=== PATIENT | female | born 1965 | race Caucasian/White ===

== ENCOUNTER 2024-03-14 14:43 | Emergency (ER) | payer MEDICAID, SELFPAY ==
[2024-03-14 14:59] VITALS: BP 171/82; PULSE 89; RESP 18; TEMP 36.9; O2SAT 94
--- NOTE | 2024-03-14 15:14 | PD.EDRME ---
Rapid Medical Screening Exam E Arrival date/time: 03/14/24 14:43 59-year-old female with a history of type 2 diabetes, hypertension presents to the emergency room with a chief complaint of an elevated blood sugar reading. Patient states she was seen by her primary care provider this morning and labs were drawn. Patient states she went home and checked her blood sugar and it read critically high. I have greeted and performed a focused initial assessment of this patient. A comprehensive ED assessment and evaluation of the patient, analysis of all test results, and completion of the medical decision making process will be conducted by additional ED providers. Chief Complaint: Recheck/Abnormal Lab/Rx Vital signs: Vital Signs Temperature 98.5 F 03/14/24 14:59 Pulse Rate 89 03/14/24 14:59 Respiratory Rate 18 03/14/24 14:59 Blood Pressure 171/82 H 03/14/24 14:59 Pulse Oximetry (%) 94 L 03/14/24 14:59 Oxygen Delivery Method Room Air 03/14/24 14:59 Vital signs reviewed by provider: Yes
[2024-03-14 15:51] LABS: Basophils % (Auto) 0 % (0-2.5); Eosinophils # (Auto) 0.3 Thou/mm3 (0.0-0.5); Eosinophils % (Auto) 4 % (0-10); Hematocrit 33.5 % (36.0-46.0); Hemoglobin 10.7 g/dL (12.0-16.0); Immature Granulocytes % (Auto) 1 % (0-0); Immature Granulocytes Auto 0.05 Thou/mm3 (0.00-0.00); Lymphocytes # (Auto) 1.6 Thou/mm3 (1.0-4.8); Lymphocytes % (Auto) 23 % (10-50); Mean Corpuscular HGB Conc 31.9 g/dl (31.0-37.0); Mean Corpuscular Hemoglobin 25.8 pg (25.0-35.0); Mean Corpuscular Volume 81 fL (80-100); Monocytes # (Auto) 0.4 Thou/mm3 (0.0-0.8); Monocytes % (Auto) 6 % (0-12); Neutrophils # (Auto) 4.6 Thou/mm3 (1.8-7.7); Neutrophils % (Auto) 66 % (37-80); Nucleated Red Blood Cell % 0 /100 WBC (0); Platelet Count 272 Thou/mm3 (140-440); RDW Standard Deviation 43.4 fL (36.4-46.3); Red Blood Count 4.14 Miln/mm3 (4.00-5.20); White Blood Count 6.9 Thou/mm3 (3.6-11.0)
[2024-03-14 15:52] LABS: Beta Hydroxybutyrate 0.1 mmol/L (<0.6)
[2024-03-14 16:10] LABS: Collection Type, Urine Clean Catch
[2024-03-14 16:29] LABS: Alanine Aminotransferase 43 U/L (10-49); Albumin, Serum 4.5 gm/dL (3.4-4.8); Albumin/Globulin Ratio 1.8 (1.2-2.2); Alkaline Phosphatase 116 U/L (46-116); Anion Gap 8 (7-16); Aspartate Amino Transferase 31 U/L (0-34); BUN/Creatinine Ratio 12 Ratio (12-20); Bilirubin,Total 0.2 mg/dL (0.3-1.2); Blood Urea Nitrogen 23 mg/dL (9-23); Calcium 8.9 mg/dL (8.3-10.6); Calcium (Corrected) 8.9 mg/dL (8.5-10.1); Carbon Dioxide 25.4 mMol/L (20.0-31.0); Chloride 99 mMol/L (98-107); Creatinine (Component) 1.9 mg/dL (0.6-1.3); Globulin 2.5 gm/dL (2.3-3.5); Lipase 43 U/L (12-53); Osmolality,Calculated 291 (275-295); Potassium 4.3 mMol/L (3.4-5.1); Sodium 132 mMol/L (136-145); eGFR 30 See Note
[2024-03-14 16:29] LABS: Amphetamine/Methamp Scrn,U Negative (Negative); Barbiturate Screen,Urine Negative (Negative); Benzodiazepines Screen,Urine Negative (Negative); Benzoylecgonine Screen, Ur Negative (Negative); Fentanyl Screen,Urine Negative (Negative); Opiate Screen,Urine Negative (Negative); THC Screen,Urine Negative (Negative)
[2024-03-14 16:34] LABS: Glucose 508 mg/dL (74-106)
[2024-03-14 16:53] LABS: Bilirubin,Urine Negative (Negative); Blood,Urine Negative (Negative); Clarity,Urine Clear (Clear/Hazy); Color,Urine Colorless (Lt Yel-Yel); Glucose, Urine 4+ (Negative); Ketones,Urine Negative (Negative); Leukocyte Esterase,Urine Positive (Negative); Nitrite,Urine Negative (Negative); PH,Urine 6.5 (5.0-7.0); Protein,Urine Negative (Neg - Trace); RBC,Urine 1 /hpf (0-3); Squamous Epithelial Cell,Urine 1 /hpf (0-5); Urobilinogen,Urine Negative mg/dL (0.0-1.0); WBC,Urine 70 /hpf (0-5)
[2024-03-14 19:04] VITALS: BP 185/93; PULSE 92; RESP 20; TEMP 36.8; O2SAT 96
[2024-03-14 21:50] VITALS: BP 162/98; PULSE 93; RESP 18; TEMP 36.7; O2SAT 94
--- NOTE | 2024-03-14 21:55 | PD.EDRECHK ---
ED Recheck Abnl Lab Rx-RME/HPI General Chief Complaint: Recheck/Abnormal Lab/Rx Stated Complaint: Blood sugar 520 Time Seen by Provider: 03/14/24 21:31 Arrival date/time: 03/14/24 14:43 RME / HPI RME / HPI narrative: 03/14/24 14:43 59-year-old female with a history of type 2 diabetes, hypertension presents to the emergency room with a chief complaint of an elevated blood sugar reading. Patient states she was seen by her primary care provider this morning and labs were drawn. Patient states she went home and checked her blood sugar and it read critically high. I have greeted and performed a focused initial assessment of this patient. A comprehensive ED assessment and evaluation of the patient, analysis of all test results, and completion of the medical decision making process will be conducted by additional ED providers. Dr. Rush?s Main ED Evaluation: 59yo female with pmhx DM, HTN presents to the ED for a chief complaint of elevated blood sugar. Sister at bedside states she checked the patient's blood sugar today after she had routine labs done and was noted to be 520, so she brought her in for evaluation. Patient states she is compliant with her medication, but does not regularly check her blood sugar. She is not on insulin. She denies any N/V, headache, dizziness, lightheadedness or any other associated symptoms. No known allergies. Related Data Home Medications ?Medication ?Instructions ?Recorded ?Confirmed acetaminophen 650 mg 650 mg PO TID PRN Pain 06/27/22 06/27/22 tablet,extended release cyclobenzaprine 10 mg tablet 10 mg PO HS 06/27/22 06/27/22 escitalopram oxalate 10 mg tablet 10 mg PO QDAY 06/27/22 06/27/22 finerenone 10 mg tablet (Kerendia) 10 mg PO QDAY 06/27/22 06/27/22 levothyroxine 50 mcg tablet 50 mcg PO QDAY 06/27/22 06/27/22 lisinopril 20 mg tablet 20 mg PO QDAY 06/27/22 06/27/22 metformin 500 mg tablet 500 mg PO QDAY 06/27/22 06/27/22 omeprazole 40 mg capsule,delayed 40 mg PO QDAY 06/27/22 06/27/22 release Previous Rx's ?Medication ?Instructions ?Recorded albuterol sulfate 90 mcg/actuation 1 inh inhalation QID PRN shortness 12/05/20 aerosol inhaler (ProAir HFA) of breath or wheezing #6.7 grams guaifenesin 100 mg/5 mL oral 200 mg (10 mL) PO Q4H PRN cough 01/05/22 liquid (Adult Tussin Chest #500 mL Congestion) benzonatate 100 mg capsule 100 mg PO BID PRN cough #20 caps 04/06/22 IBU 800 mg tablet (ibuprofen) 800 mg PO Q6H PRN pain #30 tabs 06/19/22 baclofen 20 mg tablet 20 mg PO QDAY #20 tabs 06/19/22 cyclobenzaprine 10 mg tablet 10 mg PO TID PRN muscle spasm #20 07/29/22 tabs tramadol 37.5 mg-acetaminophen 325 1 tab PO TID PRN pain #20 tabs 07/29/22 mg tablet hydrocodone 5 mg-acetaminophen 325 1 tab PO BID PRN pain #10 tabs 07/18/23 mg tablet Allergies Allergy/AdvReac Type Severity Reaction Status Date / Time No Known Allergies Allergy Verified 07/18/23 09:41 Review of Systems Review of Systems Systems Reviewed: All systems reviewed, normal except as documented Past Medical History Past Medical History NEUROLOGIC: Negative Neurological Disorders CARDIAC: Positive Hypertension; Negative Cardiac Disorders or Congestive Heart Failure RESPIRATORY: Positive Chronic Obstructive Pulmonary Disease (COPD) and Asthma GASTROINTESTINAL: Positive Gastrointestinal Disorders (HEARTBURN) GENITOURINARY: Positive Renal Disease REPRODUCTIVE: Positive Previous Pregnancies () MUSCULOSKELETAL: Negative Musculoskeletal Disorders ENDOCRINE: Positive Diabetes Mellitus Type 2; Negative Diabetes Mellitus Type 1 HEMATOLOGIC: Negative Blood Disorders or Sickle Cell Disease PSYCHO/SOCIAL: Positive Depression OTHER HISTORY: Positive Hospitalization, Chicken Pox, Measles and Mumps; Negative Anesthesia Reactions or MRSA Family History FAMILY HISTORY: Positive Family Psychiatric Problems (NUMEROUS FAMILY MEMBERS), Family Cardiac Disorders (NUMEROUS FAMILY MEMBERS) and Family Cancer (MOTHER); Negative Family Respiratory Disorders, Family Gastrointestinal Problems or Family Surgery Surgical History SURGICAL: Positive Section (X1) Social History SMOKING STATUS: Current every day smoker ED Exam Narrative Physical exam: GENERAL APPEARANCE: alert and oriented x 4, well-developed, well-nourished, no acute distress VITALS: All vitals were reviewed and the pulse ox is 95% on room air, which is normal according to my interpretation. HEENT: normocephalic, atraumatic NECK: supple LUNGS: no respiratory distress, normal effort HEART: good peripheral perfusion ABDOMEN: non distended EXTREMITIES: atraumatic NEUROLOGIC: awake; alert and oriented x4; cranial nerves II-XII grossly intact PSYCHIATRIC: appropriate mood and affect SKIN: warm, dry, normal color; no rashes Course Quality Measures none Orders Category Date Time Status Beta Hydroxybutyrate Stat Lab 03/14/24 15:24 Completed CBC Stat Lab 03/14/24 15:24 Completed CMP [Comprehensive Metabolic Panel] Stat Lab 03/14/24 15:24 Completed Drug Screen,Urine Stat Lab 03/14/24 15:41 Completed Lipase Stat Lab 03/14/24 15:24 Completed UA [Urinalysis] Stat Lab 03/14/24 15:41 Completed Urine Culture Stat Lab 03/14/24 15:41 Received Vital Signs Vital signs: Vital Signs Temperature 98.5 F 03/14/24 14:59 Pulse Rate 89 03/14/24 14:59 Respiratory Rate 18 03/14/24 14:59 Blood Pressure 171/82 H 03/14/24 14:59 Pulse Oximetry (%) 94 L 03/14/24 14:59 Oxygen Delivery Method Room Air 03/14/24 14:59 Recheck / Abnormal Lab / Rx MDM Narrative MDM Narrative:: Scribe Attestation: 03/14/24 Brenda Shelton am scribing for and in the presence of Dr. Rush. Patient data External records reviewed:: [facility] previous records (Per chart review, patient was seen here on 09/05/23 for a migraine.) Clinical information provided by:: patient Social determinants that could affect healthcare access:: none Patient has the following chronic illnesses:: HTN, DMII How is presenting disease/condition affected by chronic disease/condition?: caused by Evaluation data The following diagnostics were reviewed and interpreted by me:: lab results Lab and/or radiology exams considered but not ordered:: none Interpretation Summary: CBC is normal, Glucose is elevated at 508, Anion Gap is normal, UA shows 4+ glucose, according to my interpretation. Medications / Prescriptions Medications or Prescriptions considered but not ordered:: none Medication administrations:: see above Consultations Consultation(s) initiated? (list below): No Diagnosis Recheck Differential Diagnosis: other (hyperglycemia without ketosis, DKA, hyperosmolar state) Most likely diagnosis given after review of the tests above:: hyperglycemia Admission Indicated Admission indicated?: not indicated Admission Request Was there a request for admission?: No Disposition Plan Disposition Plan: Discharge Discharge Attestation Discharge Attestation: The patient and all family members were given an opportunity to ask questions and understood the discharge instructions. Discharge instructions specifically effects, indications for sooner follow up or return to the emergency department, and the expected course of current diagnosis. Patient condition: Stable Discharge Plan Plan Patient Disposition: HOME (Self Care) Disposition Comment: Stable for discharge Patient condition on transfer: Stable Prescriptions/Referrals Prescriptions/Med Rec: No Action albuterol sulfate [ProAir HFA] 90 mcg/actuation HFA aerosol inhaler 1 inh inhalation QID PRN (Reason: shortness of breath or wheezing) Qty: 6.7 0RF guaifenesin [Adult Tussin Chest Congestion] 100 mg/5 mL liquid 200 mg PO Q4H PRN (Reason: cough) Qty: 500 0RF tramadol-acetaminophen 37.5-325 mg tablet 1 tab PO TID PRN (Reason: pain) Qty: 20 0RF cyclobenzaprine 10 mg tablet 10 mg PO TID PRN (Reason: muscle spasm) Qty: 20 0RF benzonatate 100 mg capsule 100 mg PO BID PRN (Reason: cough) Qty: 20 1RF metformin 500 mg Tablet 500 mg PO QDAY lisinopril 20 mg Tablet 20 mg PO QDAY acetaminophen 650 mg Tablet Extended Release 650 mg PO TID PRN (Reason: Pain) levothyroxine 50 mcg Tablet 50 mcg PO QDAY escitalopram oxalate 10 mg Tablet 10 mg PO QDAY Rx Instructions: take 1/2 tablet by mouth for 7 days, dthent take 1 tablet for 7 days every day cyclobenzaprine 10 mg Tablet 10 mg PO HS omeprazole 40 mg Capsule,Delayed Release(Dr/Ec) 40 mg PO QDAY Kerendia 10 mg Tablet 10 mg PO QDAY baclofen 20 mg tablet 20 mg PO QDAY Qty: 20 0RF ibuprofen [IBU] 800 mg tablet 800 mg PO Q6H PRN (Reason: pain) Qty: 30 0RF hydrocodone-acetaminophen 5-325 mg tablet 1 tab PO BID MDD 10 PRN (Reason: pain) Qty: 10 0RF Referrals: Melissa Ferraro NP [Primary Care Provider] - In 1 week Problem List Clinical Impression: Acute hyperglycemia Patient/Caregiver Discharge Instructions Discharge Activity: activity as tolerated Education Materials: High Blood Sugar (Hyperglycemia), How to Check Your Blood Sugar, Glucose Check Steps, ED Diabetes with High Blood Sugar Additional Instructions: Please return to the emergency department for any worsening or any further medical problems Otherwise you should follow-up with your primary care doctor at your earliest convenience as discussed. Today your blood sugar was 500. That is way too high. You are not having any complication of that high blood sugar such as DKA or hyperosmolar state. You are also not apparently having any acute infections. Is important that you follow-up with your primary care doctor so that you can discuss changing or adding to your medications. Print Language: Austrian Stand Alone Forms: Alejandrina Award Info., Patient Portal Info Letter
[2024-03-14] MEDS: INSULIN HUM REGULAR 1 UNIT/0.01 ML (PER UNIT) 5 UNIT SC (22:04)
[2024-03-14 22:10] VITALS: RESP 18
== END 2024-03-14 22:11 | disposition home or self-care (01) ==
PROVIDERS: Nurse Practitioner Family; Emergency Provider Emergency Medicine; PCP Nurse Practitioner Family
DX: E11.65 Type 2 diabetes mellitus with hyperglycemia (principal); I10 Essential (primary) hypertension
CPT/HCPCS: 36415; 80053; 80307; 81001; 82010; 83690; 85025; 87077; 87086; 87186; 96372; 99283; J1815

== ENCOUNTER → 2024-06-07 | Outpatient (CLI) | payer MEDICAID, SELFPAY ==
--- NOTE | 2024-06-07 13:00 | XR_ITS ---
Examination: Retroperitoneal ultrasound, complete Technique: Multiple high resolution grayscale images of the retroperitoneum obtained, including kidneys and bladder. Exam date and time:June 07, 2024 1315 hours INDICATIONS: Renal insufficiency on laboratory examination March 14, 2024. FINDINGS: Right kidney 10.5 cm cortex 1.6 cm Midpole 15 mm cyst Left kidney 11.8 cm cortex 1.8 cm Moderate renal parenchymal scar formation No bladder mass or bladder calculi Bladder prevoid volume 406 cc IMPRESSION: Moderate bilateral renal parenchymal scar formation, no hydronephrosis
== END | disposition home or self-care (01) ==
LOC: CDIM 12:52
PROVIDERS: PCP Nurse Practitioner Family; Referring Provider Internal Medicine; Visit Provider Internal Medicine
DX: N28.89 Other specified disorders of kidney and ureter (principal)
CPT/HCPCS: 76770

== ENCOUNTER 2024-09-22 19:59 | Emergency (ER) | payer MEDICAID, SELFPAY ==
--- NOTE | 2024-09-22 20:00 | EDNOTE_ITS ---
ED Fall Injury RME/HPI General Chief Complaint: Fall Stated Complaint: FALL Time Seen by Provider: 09/22/24 20:11 Arrival date/time: 09/22/24 19:59 RME / HPI RME / HPI Narrative: See MDM. Related Data Home Medications ?Medication ?Instructions ?Recorded ?Confirmed acetaminophen 650 mg 650 mg PO TID PRN Pain 06/2706/27/22 tablet,extended release cyclobenzaprine 10 mg tablet 10 mg PO HS 06/27/2206/07 escitalopram oxalate 10 mg tablet 10 mg PO QDAY 06/27/22 finerenone 10 mg tablet (Kerendia) 10 mg PO QDAY 06/2706/27/22 levothyroxine 50 mcg tablet 50 mcg PO QDAY 06/27/22 lisinopril 20 mg tablet 20 mg PO QDAY 06/27/2206/27 metformin 500 mg tablet 500 mg PO QDAY 06/27/2206/07 omeprazole 40 mg capsule,delayed 40 mg PO QDAY 3 06/27/22 release Previous Rx's ?Medication ?Instructions ?Recorded albuterol sulfate 90 mcg/actuation 1 inh inhalation QI D PRN shortness 12/05/20 aerosol inhaler (ProAir HFA) of breath or wheezing #6. 7 grams guaifenesin 100 mg/5 mL oral 200 mg (10 mL) PO Q4H PRN cough 01/05/22 liquid (Adult Tussin Chest #500 mL Congestion) benzonatate 100 mg capsule 100 mg PO BID PRN cough #20 caps 04/06/22 IBU 800 mg tablet (ibuprofen) 800 mg PO Q6H PRN pain # 30 tabs 06/19/22 baclofen 20 mg tablet 20 mg PO QDAY #20 tabs 06/19 cyclobenzaprine 10 mg tablet 10 mg PO TID PRN muscle s pasm #20 07/29/22 tabs tramadol 37.5 mg-acetaminophen 325 1 tab PO TID PRN pa in #20 tabs 07/29/22 mg tablet hydrocodone 5 mg-acetaminophen 325 1 tab PO BID PRN pa in #10 tabs 07/18/23 mg tablet Allergies Allergy/AdvReac Type Severity Reaction Status Date / Time No Known Allergies Allergy Verified 07/18/23 09:41 Review of Systems Review of Systems Systems Reviewed: All systems reviewed, normal except as documented Past Medical History Past Medical History NEUROLOGIC: Negative Neurological Disorders CARDIAC: Positive Hypertension; Negative Cardiac Disorders or Congestive Heart Failure RESPIRATORY: Positive Chronic Obstructive Pulmonary Disease (COPD) and Asthma GASTROINTESTINAL: Positive Gastrointestinal Disorders (HEARTBURN) GENITOURINARY: Positive Renal Disease REPRODUCTIVE: Positive Previous Pregnancies () MUSCULOSKELETAL: Negative Musculoskeletal Disorders ENDOCRINE: Positive Diabetes Mellitus Type 2; Negative Diabetes Mellitus Type 1 HEMATOLOGIC: Negative Blood Disorders or Sickle Cell Disease PSYCHO/SOCIAL: Positive Depression OTHER HISTORY: Positive Hospitalization, Chicken Pox, Measles and Mumps; Negative Anesthesia Reactions or MRSA Family History FAMILY HISTORY: Positive Family Psychiatric Problems (NUMEROUS FAMILY MEMBERS), Family Cardiac Disorders (NUMEROUS FAMILY MEMBERS) and Family Cancer (MOTHER); Negative Family Respiratory Disorders, Family Gastrointestinal Problems or Family Surgery Surgical History SURGICAL: Positive Section (X1) Social History SMOKING STATUS: Current every day smoker ED Exam Narrative Physical exam: As noted in MDM. Course Course Course Narrative: CXR ordered to r/o pneumothorax. Quality Measures none Orders Category Date Time Status Saline [Insert IV] NOW Care 09/22/24 20:04 Completed Straight [In and Out Catheter] X1 Care 09/22/24 20:03 Completed Transfer to another facility [Transfer/Discharge] Stat Discharge 09/22/24 22:[address] pelvis wo con Stat Exams 09/22/24 20:04 Completed XR chest 1V portable Stat Exams 09/22/24 20:05 Completed XR femur RT 2V Stat Exams 09/22/24 20:05 Completed XR hip RT 1V Stat Exams 09/22/24 20:31 Completed Alcohol, Blood Medical Stat Lab 09/22/24 20:15 Completed Bilirubin,Direct Stat Lab 09/22/24 20:15 Completed CBC Stat Lab 09/22/24 20:15 Completed CMP [Comprehensive Metabolic Panel] Stat Lab 09/22/24 20:15 Completed Magnesium Stat Lab 09/22/24 20:15 Completed PT [Prothrombin Time with INR] Stat Lab 09/22/24 20:15 Completed PTT [Partial Thromboplastin Time] Stat Lab 09/22/24 20:15 Completed HYDROmorphone INJ [Dilaudid Inj] Med 09/22/24 20:43 Discontinued 1 mg IVP X1 ONE HYDROmorphone INJ [Dilaudid Inj] Med 09/23/24 00:41 Discontinued 1 mg IVP X1 ONE Ketorolac Inj [Toradol Inj] Med 09/22/24 20:04 Discontinued 30 mg IVP X1 ONE Morphine Inj Med 09/22/24 20:04 Discontinued 4 mg IVP X1 ONE Ondansetron Inj [Zofran Inj] Med 09/22/24 20:04 Discontinued 4 mg IVP X1 ONE Sodium Chloride 0.9% 1000 ml [Ns] 1,000 ml Med 09/22/24 20:04 Discontinued IV 999 mls/hr Vital Signs Vital signs: Vital Signs Temperature 98 F 09/22/24 20:14 Pulse Rate 98 09/22/24 20:14 Respiratory Rate 18 09/22/24 20:14 Blood Pressure 152/112 H 09/22/24 20:14 Pulse Oximetry (%) 93 L 09/22/24 20:14 Oxygen Delivery Method Room Air 09/22/24 20:14 Fall MDM Narrative MDM Narrative:: This section includes all my notes and documentations, including HPI, PE, and ED course. Ming Eagle MD HPI: 59yo female BIBA from home with right hip pain after a fall just [employer]. Patient tripped over her grandson's toys and landed on her right hip. No head injury or loss of consciousness. No other injuries. No other complaints reported. ROS: All negative except as documented in HPI. Physical Exam: General: Alert and oriented. In obvious pain. Eyes: Conjunctivae and lids clear. ENT: No nasal congestion. Neck: Supple. Heart: RRR. Lungs: No respiratory distress. Good air movement. No rhonchi, wheezing, rales. Abdomen: Soft and nontender. Normal bowel sounds. No distension. No rebound or guarding. Back: No CVA tenderness. Skin: Warm and dry. Neuro: Alert and oriented X 3. Musculoskeletal: Remarkable for right hip tenderness. All other major bones and joints are nontender with no limited range of motion. I reviewed EMS notes. I reviewed all diagnostic test results. My interpretation of the right hip/femur x-rays is right hip fracture. My interpretation of the chest x-ray is NAD. My interpretation of the right femur x-ray is acute displaced subcapital hip fracture. My interpretation of the right hip x-ray is hip fracture. My review of the pelvic CT report is acute displaced right femoral neck fracture. Blood tests unremarkable. At this point, diagnoses include right hip fracture. Treatment here included IV fluid, Zofran, Toradol, morphine, and Dilaudid. She felt much better. I discussed the case with Dr. Clayton, orthopedic surgeon at [facility]. About the presentation and exam and diagnostics and treatments here. And need of further care in the hospital there. Will accept the patient. Ming Eagle MD Patient data External records reviewed:: [facility] previous records (Per chart review, patient was seen here on 03/14/24 for acute hyperglycemia.) and EMS form Clinical information provided by:: patient Social determinants that could affect healthcare access:: none Patient has the following chronic illnesses:: DM, HTN How is presenting disease/condition affected by chronic disease/condition?: uneffected by Evaluation data The following diagnostics were reviewed and interpreted by me:: lab results and radiology exam(s) Lab and/or radiology exams considered but not ordered:: none Interpretation Summary: I reviewed all diagnostic test results. My interpretation of the right hip/femur x-rays is right hip fracture. My interpretation of the chest x-ray is NAD. My interpretation of the right femur x-ray is acute displaced subcapital hip fracture. My interpretation of the right hip x-ray is hip fracture. My review of the pelvic CT report is acute displaced right femoral neck fracture. Blood tests unremarkable. Medications / Prescriptions Medications or Prescriptions considered but not ordered:: none Medication administrations:: Medication Administration History Discontinued Medications Hydromorphone HCl (Hydromorphone Inj 2 Mg/Ml Vial) 1 mg IVP X1 ONE Stop: 09/22/24 20:44 Last Admin: 09/22/24 20:51 Dose: 1 mg Documented By: JORDAN Hydromorphone HCl (Hydromorphone Inj 2 Mg/Ml Vial) 1 mg IVP X1 ONE Stop: 09/23/24 00:42 Last Admin: 09/23/24 00:45 Dose: 1 mg Documented By: JORDAN Sodium Chloride (Ns) 1,000 mls @ 999 mls/hr IV .Q1H1M ONE Stop: 09/22/24 21:04 Last Infusion: 09/22/24 22:05 Dose: Infused Documented By: Admin: 09/22/24 20:17 Dose: 999 mls/hr Documented By: EE Ketorolac Tromethamine (Ketorolac Inj 30 Mg/Ml Vial) 30 mg IVP X1 ONE Stop: 09/22/24 20:05 Last Admin: 09/22/24 20:17 Dose: 30 mg Documented By: EE Morphine Sulfate (Morphine Sulf Inj 10 Mg/Ml Vial) 4 mg IVP X1 ONE Stop: 09/22/24 20:05 Last Admin: 09/22/24 20:18 Dose: 4 mg Documented By: EE Ondansetron HCl (Ondansetron Inj 2 Mg/Ml Inj 2 Ml) 4 mg IVP X1 ONE; Protocol Stop: 09/22/24 20:05 Last Admin: 09/22/24 20:17 Dose: 4 mg Documented By: EE Morphine, Toradol, Dilaudid, Zofran, IV fluid Consultations Consultation(s) initiated? (list below): Yes Consultation #1 (Physician, Specialty, Details): I discussed the case with Dr. Clayton, orthopedic surgeon at [facility]. About the presentation and exam and diagnostics and treatments here. And need of further care in the hospital there. Will accept the patient. Diagnosis Fall Differential Diagnosis: syncope, dislocation of shoulder region, fracture of wrist, compression fracture, concussion with loss of consciousness and concussion without loss of consciousness Most likely diagnosis given after review of the tests above:: Right hip fracture Admission Indicated Admission indicated?: not indicated Explain why admission is indicated or not indicated:: No orthopedic service available at this facility currently. Admission Request Was there a request for admission?: No Disposition Plan Disposition Plan: Transfer ([facility] ) Discharge Plan Plan Patient Disposition: [facility] Facility Pt Being Transferred to: [facility] Service Needed for Transfer: Orthopedics Prescriptions/Referrals Prescriptions/Med Rec: No Action albuterol sulfate [ProAir HFA] 90 mcg/actuation HFA aerosol inhaler 1 inh inhalation QID PRN (Reason: shortness of breath or wheezing) Qty: 6.7 0RF guaifenesin [Adult Tussin Chest Congestion] 100 mg/5 mL liquid 200 mg PO Q4H PRN (Reason: cough) Qty: 500 0RF tramadol-acetaminophen 37.5-325 mg tablet 1 tab PO TID PRN (Reason: pain) Qty: 20 0RF cyclobenzaprine 10 mg tablet 10 mg PO TID PRN (Reason: muscle spasm) Qty: 20 0RF benzonatate 100 mg capsule 100 mg PO BID PRN (Reason: cough) Qty: 20 1RF metformin 500 mg Tablet 500 mg PO QDAY lisinopril 20 mg Tablet 20 mg PO QDAY acetaminophen 650 mg Tablet Extended Release 650 mg PO TID PRN (Reason: Pain) levothyroxine 50 mcg Tablet 50 mcg PO QDAY escitalopram oxalate 10 mg Tablet 10 mg PO QDAY Rx Instructions: take 1/2 tablet by mouth for 7 days, dthent take 1 tablet for 7 days every day cyclobenzaprine 10 mg Tablet 10 mg PO HS omeprazole 40 mg Capsule,Delayed Release(Dr/Ec) 40 mg PO QDAY Kerendia 10 mg Tablet 10 mg PO QDAY baclofen 20 mg tablet 20 mg PO QDAY Qty: 20 0RF ibuprofen [IBU] 800 mg tablet 800 mg PO Q6H PRN (Reason: pain) Qty: 30 0RF hydrocodone-acetaminophen 5-325 mg tablet 1 tab PO BID MDD 10 PRN (Reason: pain) Qty: 10 0RF Referrals: No Primary/Family,Physician [Primary Care Provider] - In 1 week Problem List Clinical Impression: Fracture of right hip Patient/Caregiver Discharge Instructions Print Language: German Stand Alone Forms: Alejandrina Award Info., Patient Portal Info Letter
[2024-09-22 20:01] VITALS: PULSE 102; RESP 24; O2SAT 92; BMI 25.0
--- NOTE | 2024-09-22 20:04 | XR_ITS ---
Examination: CT pelvis without intravenous contrast. 2-D sagittal and coronal reconstructions. Date and time of exam:September 22, 2024 2104 hours INDICATIONS: Patient fell today with injury to the pelvis, pelvic hip pain CTDI: vol (mGy) :5.29 DLP: (mGycm) : 200 Technique: Multiple 3 mm axial sections of the pelvis have been obtained with the 64 slice high resolution scanner. 2-D sagittal and coronal reconstructions. Low dose protocols were performed. One or more of the following dose reduction techniques were used; automated exposure control, adjustment of the mA and/or KV according to patient size, use of iterative reconstruction technique. Findings: Acute displaced right femoral neck fracture, mild upward displacement of the right femoral shaft Left hip bones of the pelvis intact Possible nondisplaced fracture left transverse process L4 Left hip intact No pelvic hematoma IMPRESSION: Acute displaced right femoral neck fracture
--- NOTE | 2024-09-22 20:05 | XR_ITS ---
Examination: Right femur 2 views Technique the right femur 2 views Date and time: September 22, 2024 202 hours INDICATIONS: Patient fell today with injury to the hip, hip pain. FINDINGS: Acute displaced subcapital hip fracture Shaft left femur intact IMPRESSION: Acute displaced subcapital hip fracture
--- NOTE | 2024-09-22 20:05 | XR_ITS ---
Examination: AP chest single view Technique : AP portable semiupright chest single view Date and time: September 22, 2024, 2018 hours Comparison June 27, 2022 INDICATIONS: Shortness of breath today. FINDINGS: Normal heart size No pneumonia or pulmonary edema Mild elevation right hemidiaphragm IMPRESSION: No active disease
[2024-09-22 20:14] VITALS: BP 152/112; PULSE 98; RESP 18; TEMP 36.6; O2SAT 93
[2024-09-22] MEDS: ONDANSETRON INJ 2 MG/ML INJ 2 ML 4 MG IVP (20:17)
[2024-09-22] MEDS: SODIUM CHLORIDE 0.9% 1000 ML 1,000 ML 999 ML IV (20:17)
[2024-09-22] MEDS: KETOROLAC INJ 30 MG/ML VIAL IVP (20:17)
[2024-09-22] MEDS: MORPHINE SULF INJ 10 MG/ML VIAL 4 MG IVP (20:18)
[2024-09-22 20:31] VITALS: BP 147/84; PULSE 87; RESP 16; O2SAT 85
--- NOTE | 2024-09-22 20:31 | XR_ITS ---
Examination: Lateral hip right, single view TECHNIQUE: Lateral cross table lateral hip single view Date and time September 22, 20242034 hours INDICATIONS: Patient fell today with surgical hip, right hip fracture FINDINGS: On the lateral view no significant displacement of the hip fracture IMPRESSION: On the lateral view no significant displacement of the hip fracture
[2024-09-22 20:32] LABS: Basophils # (Auto) 0.0 Thou/mm3 (0.0-0.2); Basophils % (Auto) 0 % (0-2.5); Eosinophils # (Auto) 0.2 Thou/mm3 (0.0-0.5); Eosinophils % (Auto) 3 % (0-10); Hematocrit 34.0 % (36.0-46.0); Hemoglobin 10.6 g/dL (12.0-16.0); Immature Granulocytes Auto 0.02 Thou/mm3 (0.00-0.00); Lymphocytes # (Auto) 1.5 Thou/mm3 (1.0-4.8); Lymphocytes % (Auto) 26 % (10-50); Mean Corpuscular HGB Conc 31.2 g/dl (31.0-37.0); Mean Corpuscular Hemoglobin 25.5 pg (25.0-35.0); Mean Corpuscular Volume 82 fL (80-100); Monocytes # (Auto) 0.4 Thou/mm3 (0.0-0.8); Monocytes % (Auto) 7 % (0-12); Neutrophils # (Auto) 3.6 Thou/mm3 (1.8-7.7); Neutrophils % (Auto) 64 % (37-80); Nucleated Red Blood Cell # 0.00 Thou/mm3 (0.00-0.00); Nucleated Red Blood Cell % 0 /100 WBC (0); Platelet Count 255 Thou/mm3 (140-440); RDW Standard Deviation 47.5 fL (36.4-46.3); Red Blood Count 4.16 Miln/mm3 (4.00-5.20); White Blood Count 5.7 Thou/mm3 (3.6-11.0)
[2024-09-22 20:35] VITALS: O2SAT 92
[2024-09-22 20:44] LABS: INR 0.9 (0.9-1.3); Partial Thromboplastin Time 23.7 Seconds (22.0-36.0); Prothrombin Time 10.3 Seconds (9.0-12.2)
[2024-09-22 20:47] LABS: Alanine Aminotransferase 30 U/L (10-49); Albumin, Serum 4.4 gm/dL (3.4-4.8); Albumin/Globulin Ratio 2.0 (1.2-2.2); Alcohol, Blood Medical < 3.0 mg/dL (0-10.0); Alkaline Phosphatase 78 U/L (46-116); Anion Gap 8 (7-16); Aspartate Amino Transferase 25 U/L (0-34); BUN/Creatinine Ratio 11 Ratio (12-20); Bilirubin,Direct 0.1 mg/dL (0.0-0.3); Bilirubin,Total 0.2 mg/dL (0.3-1.2); Blood Urea Nitrogen 20 mg/dL (9-23); Calcium 9.3 mg/dL (8.3-10.6); Calcium (Corrected) 9.3 mg/dL (8.5-10.1); Carbon Dioxide 23.8 mMol/L (20.0-31.0); Chloride 105 mMol/L (98-107); Creatinine (Component) 1.8 mg/dL (0.6-1.3); Estimated Creatinine Clearance 31.9 mL/min (>60); Globulin 2.2 gm/dL (2.3-3.5); Glucose 263 mg/dL (74-106); Magnesium 1.6 mg/dL (1.6-2.6); Osmolality,Calculated 285 (275-295); Potassium 4.4 mMol/L (3.4-5.1); Sodium 137 mMol/L (136-145); Total Protein 6.6 gm/dL (5.7-8.2); eGFR 32 See Note
[2024-09-22] MEDS: HYDROmorphone INJ 2 MG/ML VIAL 1 MG IVP (20:51)
--- NOTE | 2024-09-22 22:33 | PC.NURSE ---
PT IS ACCEPTED TO [facility] BY DR. JEAN FROM [facility]. THIS IS A ER:ER TRANSFER AND NUMBER FOR REPORT IS [phone]. [facility] WAS THE FACILITY REP I SPOKE WITH FOR ACCEPTING INFORMATION.
[2024-09-23] MEDS: HYDROmorphone INJ 2 MG/ML VIAL 1 MG IVP (00:45)
[2024-09-23 00:49] VITALS: BP 154/86; PULSE 76; RESP 18; TEMP 36.8; O2SAT 98
== END 2024-09-23 01:05 | disposition short-term general hospital (02) ==
PROVIDERS: Emergency Provider Emergency Medicine
DX: S72.011A Unspecified intracapsular fracture of right femur, initial encounter for closed fracture (principal); I10 Essential (primary) hypertension; J44.89 Other specified chronic obstructive pulmonary disease; E11.9 Type 2 diabetes mellitus without complications; F17.210 Nicotine dependence, cigarettes, uncomplicated; Z79.84 Long term (current) use of oral hypoglycemic drugs; Z79.899 Other long term (current) drug therapy; W18.09XA Striking against other object with subsequent fall, initial encounter; Y92.009 Unspecified place in unspecified non-institutional (private) residence as the place of occurrence of the external cause
CPT/HCPCS: 36415; 71045; 72192; 73501; 73552; 80053; 80307; 80320; 82248; 83735; 85025; 85610; 85730; 96361; 96374; 96375; 96376; 99283; J1171; J1885; J2270; J2405; J7030; G0480

== ENCOUNTER 2025-01-01 09:29 | Emergency (ER) | payer MEDICAID, SELFPAY ==
[2025-01-01 09:29] VITALS: BMI 25.0
[2025-01-01 09:52] VITALS: BP 156/72; PULSE 64; RESP 16; TEMP 36.7; O2SAT 97
--- NOTE | 2025-01-01 09:58 | XR_ITS ---
Examination: CT abdomen and pelvis without contrast. Coronal 3-D reconstructions. Sagittal 2-D reconstructions. Date and time of exam: January 01, 2025, 1020 hours INDICATIONS: Lower abdominal pain with painful urination beginning this morning CTDI: vol (mGy): 7.62 DLP: (mGycm): 447 Technique: Axial images of the abdomen have been obtained, 3 mm slice thickness Intravenous contrast material has not been administered. Low dose protocols were performed. One or more of the following dose reduction techniques were used; automated exposure control, adjustment of the mA and/or KV according to patient size, use of iterative reconstruction technique. Findings: 11 mm pulmonary nodule in the right middle lobe Pericardial effusion anteriorly measuring up to 19 mm No visualized liver or splenic lesion Contracted gallbladder No pancreatic or adrenal mass Moderate renal scar formation Minimal left hydronephrosis, 2 mm distal left ureterovesical junction calculus image 210 Right hip arthroplasty Normal appendix No bowel obstruction Minimal small bowel ileus Atrophic uterus No adnexal mass IMPRESSION: 11 mm pulmonary nodule right middle lobe, recommend PA lateral chest follow-up Minimal left hydronephrosis, 2 mm distal left ureterovesical junction calculus
--- NOTE | 2025-01-01 09:59 | PD.EDRME ---
Rapid Medical Screening Exam RME Arrival date/time: 01/01/25 09:29 59-year-old female presents to the emergency room today for complaints of hematuria Chief Complaint: GI Bleed Vital signs: Vital Signs Temperature 98.1 F 01/01/25 09:52 Pulse Rate 64 01/01/25 09:52 Respiratory Rate 16 01/01/25 09:52 Blood Pressure 156/72 H 01/01/25 09:52 Pulse Oximetry (%) 97 01/01/25 09:52 Oxygen Delivery Method Room Air 01/01/25 09:52 Vital signs reviewed by provider: Yes Exam: On exam well-appearing does not appear ill or toxic Clinical Impression: Labs and imaging obtained
[2025-01-01 10:24] LABS: Collection Type, Urine Clean Catch
[2025-01-01 10:40] LABS: Amphetamine/Methamp Scrn,U Negative (Negative); Barbiturate Screen,Urine Negative (Negative); Benzodiazepines Screen,Urine Negative (Negative); Benzoylecgonine Screen, Ur Negative (Negative); Fentanyl Screen,Urine Negative (Negative); Opiate Screen,Urine Negative (Negative); THC Screen,Urine Negative (Negative)
[2025-01-01 10:45] LABS: Alanine Aminotransferase 24 U/L (10-49); Albumin, Serum 5.0 gm/dL (3.4-4.8); Albumin/Globulin Ratio 1.9 (1.2-2.2); Alkaline Phosphatase 96 U/L (46-116); Anion Gap 7 (7-16); Aspartate Amino Transferase 29 U/L (0-34); BUN/Creatinine Ratio 9 Ratio (12-20); Bilirubin,Total 0.3 mg/dL (0.3-1.2); Blood Urea Nitrogen 14 mg/dL (9-23); Calcium 9.2 mg/dL (8.3-10.6); Calcium (Corrected) 9.2 mg/dL (8.5-10.1); Carbon Dioxide 26.7 mMol/L (20.0-31.0); Chloride 108 mMol/L (98-107); Creatinine (Component) 1.6 mg/dL (0.6-1.3); Estimated Creatinine Clearance 35.9 mL/min (>60); Globulin 2.7 gm/dL (2.3-3.5); Glucose 127 mg/dL (74-106); Lipase 30 U/L (12-53); Osmolality,Calculated 285 (275-295); Potassium 4.5 mMol/L (3.4-5.1); Sodium 142 mMol/L (136-145); Total Protein 7.7 gm/dL (5.7-8.2); eGFR 36 See Note
[2025-01-01 10:46] LABS: Bilirubin,Urine Negative (Negative); Blood,Urine 3+ (Negative); Glucose, Urine Negative (Negative); Ketones,Urine Negative (Negative); Leukocyte Esterase,Urine Positive (Negative); Nitrite,Urine Negative (Negative); PH,Urine 6.0 (5.0-7.0); Protein,Urine 1+ (Neg - Trace); RBC,Urine 6047 /hpf (0-3); Specific Gravity,Urine 1.017 (1.001-1.035); Squamous Epithelial Cell,Urine 3 /hpf (0-5); Urobilinogen,Urine Negative mg/dL (0.0-1.0); WBC,Urine 15 /hpf (0-5)
[2025-01-01 10:49] LABS: INR 0.9 (0.9-1.3); Partial Thromboplastin Time 23.3 Seconds (22.0-36.0); Prothrombin Time 9.9 Seconds (9.0-12.2)
[2025-01-01 11:05] LABS: Clarity,Urine Hazy (Clear/Hazy); Color,Urine Lt-Yellow (Lt Yel-Yel); Culture Indicated,Urine Yes
--- NOTE | 2025-01-01 11:20 | PD.EDADULT ---
ED General RME/HPI General Chief complaint: GI Bleed Stated complaint: GI BLEED TODAY Time Seen by Provider: 01/01/25 10:00 Arrival date/time: 59-year-old female patient with past medical history of hypertension diabetes mellitus hypothyroidism, came in for evaluation regarding hematuria. Patient noted blood-tinged urine since earlier this morning associated with dysuria and frequency. Associated with mild left lower quadrant pain described as dull ache severity mild. Patient denies any flank pain denies any suprapubic tenderness. Denies any fever denies any vomiting denies any other complaints no medications taken prior to ER visit patient is not taking any blood thinner. Denies any history of cancer. RME / HPI RME / HPI narrative: 01/01/25 09:29 59-year-old female presents to the emergency room today for complaints of hematuria Exam: On exam well-appearing does not appear ill or toxic Impression: Labs and imaging obtained Related Data Home Medications ?Medication ?Instructions ?Recorded ?Confirmed acetaminophen 650 mg 650 mg PO TID PRN Pain 06/27/22 06/27/22 tablet,extended release cyclobenzaprine 10 mg tablet 10 mg PO HS 06/27/22 06/27/22 escitalopram oxalate 10 mg tablet 10 mg PO QDAY 06/27/22 06/27/22 finerenone 10 mg tablet (Kerendia) 10 mg PO QDAY 06/27/22 06/27/22 levothyroxine 50 mcg tablet 50 mcg PO QDAY 06/27/22 06/27/22 lisinopril 20 mg tablet 20 mg PO QDAY 06/27/22 06/27/22 metformin 500 mg tablet 500 mg PO QDAY 06/27/22 06/27/22 omeprazole 40 mg capsule,delayed 40 mg PO QDAY 06/27/22 06/27/22 release Previous Rx's ?Medication ?Instructions ?Recorded albuterol sulfate 90 mcg/actuation 1 inh inhalation QID PRN shortness 12/05/20 aerosol inhaler (ProAir HFA) of breath or wheezing #6.7 grams guaifenesin 100 mg/5 mL oral 200 mg (10 mL) PO Q4H PRN cough 01/05/22 liquid (Adult Tussin Chest #500 mL Congestion) benzonatate 100 mg capsule 100 mg PO BID PRN cough #20 caps 04/06/22 IBU 800 mg tablet (ibuprofen) 800 mg PO Q6H PRN pain #30 tabs 06/19/22 baclofen 20 mg tablet 20 mg PO QDAY #20 tabs 06/19/22 cyclobenzaprine 10 mg tablet 10 mg PO TID PRN muscle spasm #20 07/29/22 tabs tramadol 37.5 mg-acetaminophen 325 1 tab PO TID PRN pain #20 tabs 07/29/22 mg tablet hydrocodone 5 mg-acetaminophen 325 1 tab PO BID PRN pain #10 tabs 07/18/23 mg tablet cefuroxime axetil 500 mg tablet 500 mg PO BID #14 tabs 01/01/25 ibuprofen 800 mg tablet 800 mg PO Q8H PRN pain #30 tabs 01/01/25 tamsulosin 0.4 mg capsule (Flomax) 0.4 mg PO QDAY #10 caps 01/01/25 Allergies Allergy/AdvReac Type Severity Reaction Status Date / Time No Known Allergies Allergy Verified 07/18/23 09:41 Review of Systems Review of Systems Narrative Review of Systems: Review of system reviewed and within normal limits except mentioned in HPI ED Exam Narrative Physical exam: VITAL SIGNS: Reviewed. GENERAL APPEARANCE: Alert and interactive, follows commands, no acute distress, HEAD AND FACE: Non-traumatic. ENT: PERRL, pink conjunctivitis, eyelid no trauma, Mucous membrane moist. NECK: Supple, nontender, no nuchal rigidity. CHEST: No tenderness, no crepitus, no paradoxical movement, no retractions. LUNGS: Clear, well ventilated, symmetric, no rales, no wheezing, no ronchi, no stridor, good breath sounds bilaterally. HEART: Regular rate, regular rhythm, no murmur, no gallops. ABDOMEN: Soft, positive bowel sounds, nondistended, no guarding, nontender, no rebound, no masses, RECTAL: Deferred. GENITAL: Deferred. NEUROLOGICAL: Gross motor function intact sensory function intact, Appropriate for age. MUSCULOSKELETAL: low back nontender, full range of motion. EXTREMITIES: Nontender, full range of motion. SKIN: Color pink, dry, no rash, no lacerations, no abrasions, no contusions. LYMPHATICS: Deferred. Course Quality Measures none Orders Category Date Time Status CT abdomen pelvis wo con Stat Exams 01/01/25 09:58 Completed CBC Stat Lab 01/01/25 10:13 Completed Comprehensive Metabolic Panel Stat Lab 01/01/25 10:13 Completed Drug Screen,Urine Stat Lab 01/01/25 10:08 Completed Lipase Stat Lab 01/01/25 10:13 Completed PT [Prothrombin Time with INR] Stat Lab 01/01/25 10:13 Completed PTT [Partial Thromboplastin Time] Stat Lab 01/01/25 10:13 Completed UA, C/S IF [Urinalysis, C/S if Indicated] Stat Lab 01/01/25 10:08 Completed Urine Culture Stat Lab 01/01/25 10:08 Received Ketorolac Inj [Toradol Inj] Med 01/01/25 12:00 Discontinued 30 mg IM X1 ONE Tamsulosin HCl [Flomax] Med 01/01/25 12:00 Discontinued 0.4 mg PO X1 ONE cefTRIAXone [Rocephin] 1,000 mg Med 01/01/25 12:00 Discontinued Lidocaine 1% Pf Vial 5ml [Xylocaine 1% 5 ml] 2.1 ml IM X1 Vital Signs Vital signs: Vital Signs Temperature 98.1 F 01/01/25 09:52 Pulse Rate 64 01/01/25 09:52 Respiratory Rate 16 01/01/25 09:52 Blood Pressure 156/72 H 01/01/25 09:52 Pulse Oximetry (%) 97 01/01/25 09:52 Oxygen Delivery Method Room Air 01/01/25 09:52 Discharge Plan Plan Patient Disposition: HOME (Self Care) Discharge Disposition comment: stable Prescriptions/Referrals Prescriptions/Med Rec: New cefuroxime axetil 500 mg tablet 500 mg PO BID Qty: 14 0RF tamsulosin [Flomax] 0.4 mg capsule 0.4 mg PO QDAY Qty: 10 0RF ibuprofen 800 mg tablet 800 mg PO Q8H PRN (Reason: pain) Qty: 30 0RF No Action albuterol sulfate [ProAir HFA] 90 mcg/actuation HFA aerosol inhaler 1 inh inhalation QID PRN (Reason: shortness of breath or wheezing) Qty: 6.7 0RF guaifenesin [Adult Tussin Chest Congestion] 100 mg/5 mL liquid 200 mg PO Q4H PRN (Reason: cough) Qty: 500 0RF tramadol-acetaminophen 37.5-325 mg tablet 1 tab PO TID PRN (Reason: pain) Qty: 20 0RF cyclobenzaprine 10 mg tablet 10 mg PO TID PRN (Reason: muscle spasm) Qty: 20 0RF benzonatate 100 mg capsule 100 mg PO BID PRN (Reason: cough) Qty: 20 1RF metformin 500 mg Tablet 500 mg PO QDAY lisinopril 20 mg Tablet 20 mg PO QDAY acetaminophen 650 mg Tablet Extended Release 650 mg PO TID PRN (Reason: Pain) levothyroxine 50 mcg Tablet 50 mcg PO QDAY escitalopram oxalate 10 mg Tablet 10 mg PO QDAY Rx Instructions: take 1/2 tablet by mouth for 7 days, dthent take 1 tablet for 7 days every day cyclobenzaprine 10 mg Tablet 10 mg PO HS omeprazole 40 mg Capsule,Delayed Release(Dr/Ec) 40 mg PO QDAY Kerendia 10 mg Tablet 10 mg PO QDAY baclofen 20 mg tablet 20 mg PO QDAY Qty: 20 0RF ibuprofen [IBU] 800 mg tablet 800 mg PO Q6H PRN (Reason: pain) Qty: 30 0RF hydrocodone-acetaminophen 5-325 mg tablet 1 tab PO BID MDD 10 PRN (Reason: pain) Qty: 10 0RF Referrals: Melissa Ferraro, [employer] [Primary Care Provider] - In 1 week Problem List Clinical Impression: Urinary tract infection, Ureterolithiasis Patient/Caregiver Discharge Instructions Discharge Activity: activity as tolerated Education Materials: Understanding Urinary Tract ... Additional Instructions: Thank you for the opportunity for serving you today. You are stable for discharged . You are advised to: Follow-up with your PCP in 1 to 2 days and as per referral to urologist Return to ED for worsening of symptoms Increase oral fluids Take medication as prescribed Strain your urine and save the stone for your urology visit Print Language: Portuguese Stand Alone Forms: Alejandrina Award Info., Patient Portal Info Letter PA/[employer]OFESSIONAL BUILDER Supervising Physician DAY/OLGA Supervising Physician: MD Frank MDM Narrative MDM hospital course (for use when minimal MDM required): 59-year-old female patient with past medical history of hypertension diabetes mellitus hypothyroidism, came in for evaluation regarding hematuria. Patient noted blood-tinged urine since earlier this morning associated with dysuria and frequency. Associated with mild left lower quadrant pain described as dull ache severity mild. Patient denies any flank pain denies any suprapubic tenderness. Denies any fever denies any vomiting denies any other complaints no medications taken prior to ER visit patient is not taking any blood thinner. Denies any history of cancer. Urinalysis showed hematuria with mild UTI. CT scan of the abdomen and pelvis showed 11 mm pulmonary nodule right middle lobe, recommend PA lateral chest follow-up. Minimal left hydronephrosis, 2 mm distal left ureterovesical junction calculus. CBC did not show any leukocytosis. Creatinine showed 1.6, BUN of 14. Patient was advised to follow-up with PCP and repeat renal panel in few days. Patient was also advised to follow-up with PCP regarding further evaluation of the 11 mm pulmonary nodule in the right middle lobe. Patient agrees with the plan. Patient was given Toradol IM Flomax and ceftriaxone IM. Prior to discharge on reevaluation patient told me that her pain is totally gone. Patient was advised to follow-up closely with PCP and for referral to urologist. Patient was also advised to strain the urine to collect the stone. Patient agrees with the plan stable for discharge home no vomiting. Vital signs are stable. Medication Administration(s) Medication Administration History Discontinued Medications Ceftriaxone Sodium 1,000 mg/ (Lidocaine HCl 2.1 ml) 0 mg IM X1 ONE Stop: 01/01/25 12:01 Last Admin: 01/01/25 12:16 Dose: 1,000 mg Documented By: JAUN Ketorolac Tromethamine (Ketorolac Inj 30 Mg/Ml Vial) 30 mg IM X1 ONE Stop: 01/01/25 12:01 Last Admin: 01/01/25 12:17 Dose: Not Given Documented By: JAUN Non-Admin Reason: Patient Refused Comments: pt stated i'm not having any pain Tamsulosin HCl (Tamsulosin Hcl 0.4 Mg Capsule) 0.4 mg PO X1 ONE Stop: 01/01/25 12:01 Last Admin: 01/01/25 12:16 Dose: 0.4 mg Documented By: JAUN Diagnosis Differential Diagnosis ED Complaint MDM: Renal colic, kidney stones, UTI, Diagnoses ruled out and/or further discussions: Ureterolithiasis, hematuria, UTI
[2025-01-01 11:52] LABS: Basophils # (Auto) 0.0 Thou/mm3 (0.0-0.2); Basophils % (Auto) 1 % (0-2.5); Eosinophils # (Auto) 0.2 Thou/mm3 (0.0-0.5); Eosinophils % (Auto) 3 % (0-10); Hematocrit 35.5 % (36.0-46.0); Hemoglobin 10.6 g/dL (12.0-16.0); Immature Granulocytes Auto 0.01 Thou/mm3 (0.00-0.00); Lymphocytes # (Auto) 2.2 Thou/mm3 (1.0-4.8); Lymphocytes % (Auto) 39 % (10-50); Mean Corpuscular HGB Conc 29.9 g/dl (31.0-37.0); Mean Corpuscular Hemoglobin 23.5 pg (25.0-35.0); Mean Corpuscular Volume 79 fL (80-100); Monocytes # (Auto) 0.5 Thou/mm3 (0.0-0.8); Monocytes % (Auto) 9 % (0-12); Neutrophils # (Auto) 2.8 Thou/mm3 (1.8-7.7); Neutrophils % (Auto) 49 % (37-80); Nucleated Red Blood Cell # 0.00 Thou/mm3 (0.00-0.00); Nucleated Red Blood Cell % 0 /100 WBC (0); Platelet Count 320 Thou/mm3 (140-440); RDW Standard Deviation 44.7 fL (36.4-46.3); Red Blood Count 4.51 Miln/mm3 (4.00-5.20); White Blood Count 5.7 Thou/mm3 (3.6-11.0)
[2025-01-01] MEDS: TAMSULOSIN HCL 0.4 MG CAPSULE PO (12:16)
== END 2025-01-01 12:38 | disposition home or self-care (01) ==
PROVIDERS: Nurse Practitioner Primary Care; Emergency Provider Emergency Medicine; PCP Nurse Practitioner Family
DX: N13.6 Pyonephrosis (principal); R91.1 Solitary pulmonary nodule
CPT/HCPCS: 36415; 74176; 80053; 80307; 81001; 83690; 85025; 85610; 85730; 87086; 96372; 99283; J0696; J3490; A9270

== ENCOUNTER 2025-02-04 09:30 | Outpatient (RCR) | payer MEDICAID, SELFPAY ==
--- NOTE | 2025-01-28 08:08 | PTNOTE_ITS ---
PT OP Initial Eval Patient Information Outpatient Physical Therapy Treatment Date: 01/28/25 Visit Reasons: right hip surgery Medical Diagnosis: z47.1; M25.551 Treatment Dx #1: Right Hip Pain Treatment Dx #2: Right Hip Weakness Start of Care: 01/28/25 Date of Onset: Sep 2024 Smoking Status Smoking Status: Current every day smoker Cessation Counseling Provided: AMBROSIOANIA was advised that quitting smoking is the single most important factor to protect the health of themselves and their family. Discussed the benefits of quitting smoking with patient. Encouraged patient to quit smoking and provided Cessation assistance materials and resources. Tobacco Use: Cigarette Years smoked: 20 Are you interested in quitting?: No Would you like additional Smoking Cessation Counseling?: No Initial Assessment Subjective: Pt is a 60 y/o female s/p right hip replacement Sep 2024. Pt still has pain (7/10) with activities. Pt has limitation with tieing shoes, bending down, chores, balance, self care, prolonged walking, and performing recreational activities. Objective: Right Hip Flexion AROM Flexion: 80 deg Abduction: 40 deg Extension: 15 deg ER and IR: NT Right Hip MMTs: grossly 3/5 Active SLR: 30 deg SLS: unable Assessment: Pt demonstrate right hip mobility and strength deficits s/p hip replacement leading to difficulty with ADLs. Pt will benefit from physical therapy to increase ROM, strength, and work on mobility Short Term and User Experience Researcher Goals 1) Increase right hip AROM WFL in 6 wks to be able to perform chores 2) Decrease hip pain to 2/10 in 6 wks to be able to stand more than 30 mins 3) Increase right MMTs grossly to 4/5 in 6 wks to be able to walk more than 30 mins 4) Increase SLS to 15 sec in 6 wks to be able to perform self care activities 5) Indep with HEP Treatment Plan 1) Manual Therapy 2) Therapeutic Activities 3) Therapeutic Exercises 4) Modalities (ice, heat) 5) Balance Training 6) Gait Training Frequency and Duration: 2 x wk for 6 wks Certification Dates: 01/28/25 to 04/28/25 Procedure Charges OP PT Eval Mod Complex 30 minutes: Yes
--- NOTE | 2025-02-04 09:53 | PT.ODAYNRPT ---
PT Outpatient Daily Note OP Daily Note Outpatient Physical Therapy Treatment Date: 02/04/25 Visit Reasons: right hip surgery Subjective: Pt's hip hurts and is sore. Pt mentioned she still has difficulty with walking. Objective: Please see flow chart for list of ther ex performed Assessment: pain with all hip exercises and frequent cues to correct form with exercises. Pt was unable to perform supine SLR due to pain and weakness; modified to sitting rei Plan: Continue with PT Length of Time (minutes) of Treatment: 30 Minutes Procedure Charges Therapeutic Exercise 30 minutes: Yes
== END 2025-02-05 23:59 | disposition home or self-care (01) ==
LOC: CPTX 09:30
PROVIDERS: PCP Orthopaedic Surgery Orthopaedic Trauma; Referring Provider Orthopaedic Surgery Orthopaedic Trauma; Visit Provider Orthopaedic Surgery Orthopaedic Trauma
DX: Z47.1 Aftercare following joint replacement surgery (principal); Z96.641 Presence of right artificial hip joint; M25.551 Pain in right hip; R26.89 Other abnormalities of gait and mobility; R26.2 Difficulty in walking, not elsewhere classified; Z71.6 Tobacco abuse counseling; F17.210 Nicotine dependence, cigarettes, uncomplicated
CPT/HCPCS: 97110; 97162